=== PATIENT | female | born 1995 | race Caucasian/White ===

== ENCOUNTER 2022-03-06 05:38 | Emergency (ER) | payer MEDICAID ==
[~2022-03-06] VITALS: Ht 165.1 cm; Wt 115.0 kg
[2022-03-06 08:41] LABS: HEMATOCRIT. 45.5 % (36.0-48.0); HEMOGLOBIN. 14.9 g/dL (12.0-16.0); MEAN CORPUSCULAR HEMOGLOBIN 29.6 pg (28.0-32.0); MEAN CORPUSCULAR VOLUME 90.2 fL (81.0-99.0); MEAN PLATELET VOLUME 8.7 fl (7.4-10.4); PLATELET 196 x1000/uL (130-400); RED BLOOD CELL COUNT 5.04 mill/uL (4.2-5.4); RED CELL DISTRIBUTION WIDTH 15.5 % (11.6-14.6)
[2022-03-06 08:55] LABS: CHLORIDE 108 mEq/L (98-107)
[2022-03-06 08:57] LABS: HCG SCREEN NEGATIVE
[2022-03-06 09:03] LABS: PLATELET ESTIMATE NORMAL
[2022-03-06 09:40] LABS: CLARITY URINE CLEAR (CLEAR); COLOR URINE YELLOW (YELLOW); KETONES URINE 4+ (NEGATIVE); LEUKOCYTE ESTERASE URINE NEGATIVE (NEGATIVE); NITRITE URINE NEGATIVE (NEGATIVE); OCCULT BLOOD URINE NEGATIVE (NEGATIVE); PROTEIN URINE NEGATIVE (NEGATIVE); SPECIFIC GRAVITY URINE 1.024 (1.005-1.030)
[2022-03-06 12:00] VITALS: BP 102/86
== END 2022-03-06 12:15 | disposition home or self-care (01) ==
LOC: ER 06:03
DX: K92.0 Hematemesis (principal); D72.825 Bandemia
CPT/HCPCS: 36415; 71045; 80053; 81003; 81025; 84703; 85025; 99285; Z7610